=== PATIENT | male | born 1945 | race Caucasian/White ===

== ENCOUNTER 2024-06-15 12:20 | Inpatient (IN) | payer MEDICARE, MEDICAID ==
[~2024-06-15] VITALS: Ht 172.7 cm; Wt 54.5 kg
[2024-06-15 19:56] LABS: BASOPHILS # (AUTO) 0.1 X10'3 (0-0.2); BASOPHILS % (AUTO) 0.6 % (0-1); EOSINOPHILS # (AUTO) 0.1 X10'3 (0-0.9); EOSINOPHILS % (AUTO) 0.5 % (0-6); HEMATOCRIT 29.3 % (42.0-52.0); HEMOGLOBIN 9.7 g/dl (14.0-17.9); LYMPHOCYTES # (AUTO) 2.4 X10'3 (1.1-4.8); LYMPHOCYTES % (AUTO) 16.9 % (21-51); MEAN CORPUSCULAR HEMOGLOBIN 31.1 PG (27.0-31.0); MEAN CORPUSCULAR VOLUME 94.1 FL (78-98); MEAN PLATELET VOLUME 7.1 FL (7.4-10.4); MONOCYTES % (AUTO) 7.3 % (2-12); NEUTROPHILS # (AUTO) 10.6 X10'3 (1.8-7.7); NEUTROPHILS % (AUTO) 74.7 % (42-75); PLATELET COUNT 443 X10'3 (140-440); RED BLOOD COUNT 3.11 X10'6 (4.70-6.10); RED CELL DISTRIBUTION WIDTH 16.5 % (11.5-14.5); WHITE BLOOD COUNT 14.3 X10'3 (4.5-11.0)
[2024-06-15 20:04] LABS: ALANINE AMINOTRANSFERASE 123 U/L (12-78); ALBUMIN 3.1 G/DL (3.4-5.0); ALBUMIN/GLOBULIN RATIO 0.7 (1.1-1.5); ALKALINE PHOSPHATASE 132 IU/L (46-116); ANION GAP 9 (8-16); ASPARTATE AMINO TRANSFERASE 71 U/L (10-37); BILIRUBIN,TOTAL 1.4 MG/DL (0.1-1.0); BLOOD UREA NITROGEN 26 MG/DL (7-18); BUN/CREATININE RATIO 25.2 (10.0-20.0); CALCIUM 9.3 MG/DL (8.5-10.1); CHLORIDE 100 MMOL/L (99-107); CREATININE 1.03 MG/DL (0.60-1.10); GLUCOSE 121 MG/DL (70-104); POTASSIUM 3.7 MMOL/L (3.5-5.1); SODIUM 139 MMOL/L (135-145); TOTAL CARBON DIOXIDE 30.1 MMOL/L (24-32); TOTAL PROTEIN 7.4 G/DL (6.4-8.2); eCRCL 47 ML/MIN; eGFR 70 ML/MIN
[2024-06-15 20:15] LABS: ANISOCYTOSIS 1+; TOTAL CELLS COUNTED 100
[2024-06-15] MEDS: aspirin 325mg tablet PO ONE (20:53)
[2024-06-15 21:06] LABS: BILIRUBIN,URINE NEGATIVE (Neg); CLARITY,URINE CLEAR (Clear); COLOR,URINE YELLOW (Yellow); GLUCOSE, URINE NEGATIVE (Neg); KETONES,URINE NEGATIVE (Neg); LEUKOCYTE ESTERASE ,URINE NEGATIVE (Neg); NITRITES, URINE NEGATIVE (Neg); OCCULT BLOOD,URINE NEGATIVE (Neg); PROTEIN,URINE NEGATIVE (Neg); UROBILINOGEN,URINE 0.2 E.U/dL (0.2-1.0)
[2024-06-15 21:15] LABS: UA COLLECTION TYPE CLN CATCH MIDSTREAM
[2024-06-15] MEDS ORDERED: potassium Cl 40MEQ/1/2NS 520ml 520 ML IV PRN (21:30)
[2024-06-15] MEDS ORDERED: magnesium sulf-water 2g/50mL 50 ML IV PRN (21:30)
[2024-06-15] MEDS ORDERED: acetaminophen 325mg tablet PO PRN (21:30)
[2024-06-15] MEDS ORDERED: potassium Cl 20 mEq SR tablet PO PRN ×2 (21:30)
[2024-06-15] MEDS ORDERED: magnesium sulf-water 4G/100mL 100 ML IV PRN (21:30)
[2024-06-15] MEDS: normal saline 1000ml 1,000 ML IV SCH (21:30)
[2024-06-15] MEDS ORDERED: magnesium hydroxide 30ml (MOM) UD suspension PO PRN (21:30)
[2024-06-15] MEDS ORDERED: magnesium Cl slow-release 64mg tablet PO PRN (21:30)
[2024-06-15] MEDS ORDERED: ondansetron/PF 4mg/2ml inj IV PRN (21:30)
[2024-06-15] MEDS ORDERED: DOXY-1 PO (23:00)
[2024-06-15] MEDS ORDERED: CEFD300C3 PO (23:00)
[2024-06-15] MEDS ORDERED: ASPI-1265 PO (23:04)
[2024-06-15] MEDS ORDERED: ATOR40TA71 PO (23:04)
[2024-06-15] MEDS ORDERED: FLO0.4C PO (23:04)
[2024-06-15] MEDS ORDERED: MIDO5TAB4 PO (23:04)
[2024-06-15] MEDS ORDERED: FURO-150 PO (23:05)
[2024-06-16] MEDS: midodrine 5mg tablet PO SCH
[2024-06-16 03:22] LABS: BASOPHILS # (AUTO) 0.1 X10'3 (0-0.2); BASOPHILS % (AUTO) 0.6 % (0-1); EOSINOPHILS # (AUTO) 0.1 X10'3 (0-0.9); EOSINOPHILS % (AUTO) 0.8 % (0-6); HEMATOCRIT 24.5 % (42.0-52.0); HEMOGLOBIN 8.4 g/dl (14.0-17.9); LYMPHOCYTES # (AUTO) 2.1 X10'3 (1.1-4.8); LYMPHOCYTES % (AUTO) 16.3 % (21-51); MEAN CORPUSCULAR HEMOGLOBIN 31.8 PG (27.0-31.0); MEAN CORPUSCULAR HGB CONC 34.1 g/dL (33.0-36.5); MEAN CORPUSCULAR VOLUME 93.1 FL (78-98); MEAN PLATELET VOLUME 7.2 FL (7.4-10.4); MONOCYTES # (AUTO) 1.1 X10'3 (0-0.9); MONOCYTES % (AUTO) 8.6 % (2-12); NEUTROPHILS # (AUTO) 9.7 X10'3 (1.8-7.7); NEUTROPHILS % (AUTO) 73.7 % (42-75); PLATELET COUNT 390 X10'3 (140-440); RED BLOOD COUNT 2.63 X10'6 (4.70-6.10); RED CELL DISTRIBUTION WIDTH 16.6 % (11.5-14.5); WHITE BLOOD COUNT 13.2 X10'3 (4.5-11.0)
[2024-06-16 03:41] LABS: ALANINE AMINOTRANSFERASE 99 U/L (12-78); ALBUMIN 2.6 G/DL (3.4-5.0); ALBUMIN/GLOBULIN RATIO 0.7 (1.1-1.5); ALKALINE PHOSPHATASE 106 IU/L (46-116); ANION GAP 9 (8-16); ASPARTATE AMINO TRANSFERASE 54 U/L (10-37); BLOOD UREA NITROGEN 30 MG/DL (7-18); BUN/CREATININE RATIO 26.1 (10.0-20.0); CALCIUM 8.9 MG/DL (8.5-10.1); CHLORIDE 103 MMOL/L (99-107); CHOL/HDL RATIO 2.9 (0.00-4.99); CHOLESTEROL 139 MG/DL (0-200); CREATININE 1.15 MG/DL (0.60-1.10); GLUCOSE 120 MG/DL (70-104); HDL CHOLESTEROL 48 MG/DL (35-60); LDL CHOLESTEROL 72 MG/DL (50-100); MAGNESIUM 2.1 MG/DL (1.5-2.4); POTASSIUM 3.7 MMOL/L (3.5-5.1); SODIUM 143 MMOL/L (135-145); TOTAL CARBON DIOXIDE 30.9 MMOL/L (24-32); TOTAL PROTEIN 6.2 G/DL (6.4-8.2); TRIGLYCERIDES 81 MG/DL (20-135); eCRCL 42 ML/MIN; eGFR 62 ML/MIN
[2024-06-16 03:53] LABS: % IRON SATURATION 19 % (11-46); IRON 62 UG/DL (53-167); TOTAL IRON BINDING CAPACITY 322 UG/DL (259-388)
[2024-06-16] MEDS: K and/or MAG REPLACEMENT MC SCH (08:00)
[2024-06-16] MEDS: aspirin 81mg tab.chew PO SCH (10:18)
[2024-06-16] MEDS: cefdinir 300mg capsule PO SCH (10:19)
[2024-06-16] MEDS: tamsulosin 0.4mg capsule PO SCH (10:19)
[2024-06-16] MEDS: multivitamins, therapeutics tablet PO SCH (10:19)
[2024-06-16] MEDS: DOXYCYCLINE 100MG CAPSULE PO SCH (10:19)
[2024-06-16] MEDS: docusate sod 100mg capsule PO SCH (10:19)
[2024-06-16] MEDS: heparin, porcine 5000 units/ml vial SQ SCH (10:27)
[2024-06-16 13:54] LABS: PRO BRAIN NATRIURETIC PEPTIDE 2247 PG/ML (0-450)
[2024-06-16 19:35] VITALS: BP 97/53; PULSE 96; RESP 16; TEMP 98.2; O2SAT 96
[2024-06-16 20:00] VITALS: RESP 16; O2SAT 96
[2024-06-16] MEDS: atorvastatin 20mg tablet PO SCH (20:18)
[2024-06-16 22:00] VITALS: BP 89/53; PULSE 92; RESP 16; TEMP 99; O2SAT 97
[2024-06-17] MEDS: midodrine 5mg tablet PO SCH (00:02)
[2024-06-17 05:09] LABS: BASOPHILS # (AUTO) 0.1 X10'3 (0-0.2); BASOPHILS % (AUTO) 0.6 % (0-1); EOSINOPHILS # (AUTO) 0.1 X10'3 (0-0.9); HEMATOCRIT 24.6 % (42.0-52.0); HEMOGLOBIN 8.2 g/dl (14.0-17.9); LYMPHOCYTES # (AUTO) 2.3 X10'3 (1.1-4.8); LYMPHOCYTES % (AUTO) 17.5 % (21-51); MEAN CORPUSCULAR HEMOGLOBIN 31.6 PG (27.0-31.0); MEAN CORPUSCULAR HGB CONC 33.3 g/dL (33.0-36.5); MEAN CORPUSCULAR VOLUME 94.9 FL (78-98); MEAN PLATELET VOLUME 6.9 FL (7.4-10.4); MONOCYTES # (AUTO) 1.2 X10'3 (0-0.9); MONOCYTES % (AUTO) 8.6 % (2-12); NEUTROPHILS # (AUTO) 9.7 X10'3 (1.8-7.7); NEUTROPHILS % (AUTO) 72.3 % (42-75); PLATELET COUNT 461 X10'3 (140-440); RED CELL DISTRIBUTION WIDTH 17.4 % (11.5-14.5); WHITE BLOOD COUNT 13.4 X10'3 (4.5-11.0)
[2024-06-17 05:21] LABS: TOTAL CELLS COUNTED 100
[2024-06-17 05:22] LABS: ALANINE AMINOTRANSFERASE 72 U/L (12-78); ALBUMIN 2.4 G/DL (3.4-5.0); ALBUMIN/GLOBULIN RATIO 0.7 (1.1-1.5); ALKALINE PHOSPHATASE 94 IU/L (46-116); ANION GAP 9 (8-16); ASPARTATE AMINO TRANSFERASE 35 U/L (10-37); BILIRUBIN,TOTAL 0.9 MG/DL (0.1-1.0); BLOOD UREA NITROGEN 32 MG/DL (7-18); CALCIUM 8.7 MG/DL (8.5-10.1); CHLORIDE 105 MMOL/L (99-107); GLUCOSE 109 MG/DL (70-104); MAGNESIUM 1.9 MG/DL (1.5-2.4); POTASSIUM 4.2 MMOL/L (3.5-5.1); SODIUM 140 MMOL/L (135-145); TOTAL CARBON DIOXIDE 26.3 MMOL/L (24-32); TOTAL PROTEIN 5.9 G/DL (6.4-8.2); eCRCL 48 ML/MIN; eGFR 73 ML/MIN
[2024-06-17 06:00] VITALS: BP 94/56; PULSE 71; RESP 20; TEMP 98.5; O2SAT 96
[2024-06-17 08:00] VITALS: RESP 16; O2SAT 98
[2024-06-17 10:00] VITALS: BP 95/54; PULSE 80; RESP 16; TEMP 97.7; O2SAT 98
[2024-06-17 16:01] LABS: THYROID STIMULATING HORMONE 2.73 ulU/ml (0.34-4.50)
[2024-06-17 18:00] VITALS: BP 101/53; PULSE 87; RESP 16; TEMP 97.1; O2SAT 98
[2024-06-17] MEDS: lactose-reduced food (Ensure Enlive) - 237ml bottle PO SCH (18:00)
[2024-06-17 20:00] VITALS: RESP 16; O2SAT 98
[2024-06-17 22:00] VITALS: BP 90/50; PULSE 81; RESP 18; TEMP 98.3; O2SAT 96
[2024-06-18 05:12] LABS: HBSAG SCREEN Negative (Negative); HEP B CORE AB, TOT Negative (Negative); HEP B SURF AB Non Reactive (.); HEPATITIS C VIRUS ANTIBODY Non Reactive (Non Reactive)
[2024-06-18 06:00] VITALS: BP 95/53; PULSE 74; RESP 18; TEMP 98.9; O2SAT 96
[2024-06-18 06:24] LABS: BASOPHILS # (AUTO) 0.1 X10'3 (0-0.2); BASOPHILS % (AUTO) 0.7 % (0-1); EOSINOPHILS # (AUTO) 0.1 X10'3 (0-0.9); EOSINOPHILS % (AUTO) 1.1 % (0-6); HEMOGLOBIN 8.1 g/dl (14.0-17.9); LYMPHOCYTES # (AUTO) 2.6 X10'3 (1.1-4.8); LYMPHOCYTES % (AUTO) 20.9 % (21-51); MEAN CORPUSCULAR HEMOGLOBIN 32.2 PG (27.0-31.0); MEAN CORPUSCULAR HGB CONC 33.7 g/dL (33.0-36.5); MEAN CORPUSCULAR VOLUME 95.4 FL (78-98); MEAN PLATELET VOLUME 7.3 FL (7.4-10.4); MONOCYTES % (AUTO) 8.4 % (2-12); NEUTROPHILS # (AUTO) 8.4 X10'3 (1.8-7.7); NEUTROPHILS % (AUTO) 68.9 % (42-75); PLATELET COUNT 526 X10'3 (140-440); RED BLOOD COUNT 2.52 X10'6 (4.70-6.10); RED CELL DISTRIBUTION WIDTH 18.5 % (11.5-14.5); WHITE BLOOD COUNT 12.2 X10'3 (4.5-11.0)
[2024-06-18 06:59] LABS: ALANINE AMINOTRANSFERASE 69 U/L (12-78); ALBUMIN 2.3 G/DL (3.4-5.0); ALBUMIN/GLOBULIN RATIO 0.7 (1.1-1.5); ALKALINE PHOSPHATASE 93 IU/L (46-116); ANION GAP 9 (8-16); ASPARTATE AMINO TRANSFERASE 39 U/L (10-37); BILIRUBIN,TOTAL 0.9 MG/DL (0.1-1.0); BLOOD UREA NITROGEN 33 MG/DL (7-18); CALCIUM 8.4 MG/DL (8.5-10.1); CHLORIDE 106 MMOL/L (99-107); CREATININE 1.18 MG/DL (0.60-1.10); GLUCOSE 100 MG/DL (70-104); MAGNESIUM 1.7 MG/DL (1.5-2.4); POTASSIUM 4.2 MMOL/L (3.5-5.1); SODIUM 140 MMOL/L (135-145); TOTAL CARBON DIOXIDE 25.4 MMOL/L (24-32); TOTAL PROTEIN 5.6 G/DL (6.4-8.2); eCRCL 41 ML/MIN; eGFR 60 ML/MIN
[2024-06-18 08:45] LABS: ANISOCYTOSIS 2+; NUCLEATED RED BLOOD CELLS 2 /100WBC (0-0); PLATELET ESTIMATE INCREASED; POLYCHROMASIA 2+; TARGET CELLS FEW; TOTAL CELLS COUNTED 100
[2024-06-18 09:00] VITALS: RESP 18; O2SAT 96
[2024-06-18 10:30] VITALS: BP 92/49; PULSE 90; RESP 14; TEMP 98.3; O2SAT 97
[2024-06-18 12:52] LABS: OCCULT BLOOD STOOL NEGATIVE (Neg)
[2024-06-18 18:00] VITALS: BP 96/50; PULSE 80; RESP 20; TEMP 98.9; O2SAT 97
[2024-06-18 20:00] VITALS: RESP 20; O2SAT 97
[2024-06-18 22:00] VITALS: BP 98/52; PULSE 89; RESP 18; TEMP 98.4; O2SAT 95
[2024-06-19 06:00] VITALS: BP 96/55; PULSE 72; RESP 18; TEMP 98.3; O2SAT 97
[2024-06-19 06:20] LABS: BASOPHILS # (AUTO) 0.1 X10'3 (0-0.2); EOSINOPHILS # (AUTO) 0.1 X10'3 (0-0.9); EOSINOPHILS % (AUTO) 1.2 % (0-6); HEMOGLOBIN 8.7 g/dl (14.0-17.9); LYMPHOCYTES # (AUTO) 2.5 X10'3 (1.1-4.8); NEUTROPHILS # (AUTO) 7.8 X10'3 (1.8-7.7); WHITE BLOOD COUNT 11.7 X10'3 (4.5-11.0)
[2024-06-19 06:23] LABS: BASOPHILS % (AUTO) 0.9 % (0-1); HEMATOCRIT 26.8 % (42.0-52.0); LYMPHOCYTES % (AUTO) 21.6 % (21-51); MEAN CORPUSCULAR HEMOGLOBIN 31.3 PG (27.0-31.0); MEAN CORPUSCULAR HGB CONC 32.6 g/dL (33.0-36.5); MEAN CORPUSCULAR VOLUME 96.2 FL (78-98); MONOCYTES # (AUTO) 1.2 X10'3 (0-0.9); MONOCYTES % (AUTO) 10.3 % (2-12); PLATELET COUNT 603 X10'3 (140-440); RED BLOOD COUNT 2.79 X10'6 (4.70-6.10); RED CELL DISTRIBUTION WIDTH 19.4 % (11.5-14.5)
[2024-06-19 06:48] LABS: ALANINE AMINOTRANSFERASE 65 U/L (12-78); ALBUMIN 2.5 G/DL (3.4-5.0); ALBUMIN/GLOBULIN RATIO 0.7 (1.1-1.5); ALKALINE PHOSPHATASE 84 IU/L (46-116); ANION GAP 6 (8-16); ASPARTATE AMINO TRANSFERASE 39 U/L (10-37); BILIRUBIN,TOTAL 0.9 MG/DL (0.1-1.0); BLOOD UREA NITROGEN 34 MG/DL (7-18); BUN/CREATININE RATIO 33.7 (10.0-20.0); CALCIUM 8.5 MG/DL (8.5-10.1); CHLORIDE 108 MMOL/L (99-107); CREATININE 1.01 MG/DL (0.60-1.10); GLUCOSE 105 MG/DL (70-104); MAGNESIUM 1.8 MG/DL (1.5-2.4); SODIUM 141 MMOL/L (135-145); TOTAL CARBON DIOXIDE 26.7 MMOL/L (24-32); TOTAL PROTEIN 5.9 G/DL (6.4-8.2); eCRCL 48 ML/MIN; eGFR 72 ML/MIN
[2024-06-19 07:55] LABS: ANISOCYTOSIS 2+; PLATELET ESTIMATE INCREASED; TOTAL CELLS COUNTED 100
[2024-06-19 07:56] LABS: POLYCHROMASIA 1+; TARGET CELLS FEW
[2024-06-19 10:00] VITALS: BP 95/44; PULSE 72; RESP 16; TEMP 97.2; O2SAT 95
[2024-06-19 18:00] VITALS: BP 98/56; PULSE 78; RESP 18; TEMP 97.6; O2SAT 96
[2024-06-19 20:00] VITALS: RESP 18; O2SAT 96
[2024-06-19 22:00] VITALS: BP 103/57; PULSE 69; RESP 14; TEMP 98.2; O2SAT 96
[2024-06-20] VITALS (9 sets, daily range): BP systolic 94–111; BP diastolic 45–62; PULSE 77–88; RESP 12–16; TEMP 96.6–98.6; O2SAT 94–97
[2024-06-20 04:04] LABS: BASOPHILS # (AUTO) 0.1 X10'3 (0-0.2)
[2024-06-20 04:05] LABS: BASOPHILS % (AUTO) 1.1 % (0-1); EOSINOPHILS # (AUTO) 0.2 X10'3 (0-0.9); EOSINOPHILS % (AUTO) 1.4 % (0-6); HEMATOCRIT 26.6 % (42.0-52.0); HEMOGLOBIN 8.9 g/dl (14.0-17.9); LYMPHOCYTES # (AUTO) 2.5 X10'3 (1.1-4.8); LYMPHOCYTES % (AUTO) 21.2 % (21-51); MEAN CORPUSCULAR HEMOGLOBIN 32.6 PG (27.0-31.0); MEAN CORPUSCULAR HGB CONC 33.6 g/dL (33.0-36.5); MONOCYTES # (AUTO) 1.4 X10'3 (0-0.9); MONOCYTES % (AUTO) 11.8 % (2-12); NEUTROPHILS # (AUTO) 7.7 X10'3 (1.8-7.7); NEUTROPHILS % (AUTO) 64.5 % (42-75); PLATELET COUNT 627 X10'3 (140-440); RED BLOOD COUNT 2.74 X10'6 (4.70-6.10); RED CELL DISTRIBUTION WIDTH 19.4 % (11.5-14.5)
[2024-06-20 04:23] LABS: ALANINE AMINOTRANSFERASE 73 U/L (12-78); ALBUMIN 2.5 G/DL (3.4-5.0); ALBUMIN/GLOBULIN RATIO 0.7 (1.1-1.5); ALKALINE PHOSPHATASE 99 IU/L (46-116); ANION GAP 6 (8-16); ASPARTATE AMINO TRANSFERASE 49 U/L (10-37); BILIRUBIN,TOTAL 0.9 MG/DL (0.1-1.0); BLOOD UREA NITROGEN 39 MG/DL (7-18); BUN/CREATININE RATIO 36.8 (10.0-20.0); CALCIUM 8.5 MG/DL (8.5-10.1); CHLORIDE 106 MMOL/L (99-107); CREATININE 1.06 MG/DL (0.60-1.10); GLUCOSE 111 MG/DL (70-104); POTASSIUM 4.2 MMOL/L (3.5-5.1); SODIUM 139 MMOL/L (135-145); TOTAL CARBON DIOXIDE 26.9 MMOL/L (24-32); TOTAL PROTEIN 6.1 G/DL (6.4-8.2); eCRCL 46 ML/MIN; eGFR 68 ML/MIN
[2024-06-20 04:28] LABS: BASOPHILS % (MANUAL) 1 % (0-1); EOSINOPHILS % (MANUAL) 1 % (0-6); LYMPHOCYTES % (MANUAL) 34 % (21-51); MONOCYTES % (MANUAL) 14 % (2-12); NEUTROPHILS % (MANUAL) 50 % (42-75); PLATELET ESTIMATE INCREASED; POLYCHROMASIA 1+; TOTAL CELLS COUNTED 100
[2024-06-21 06:54] VITALS: BP 98/53; PULSE 70; RESP 18; TEMP 98.3; O2SAT 97
[2024-06-21 08:00] VITALS: RESP 16
[2024-06-21 09:55] LABS: BLOOD UREA NITROGEN 34 MG/DL (7-18); BUN/CREATININE RATIO 32.7 (10.0-20.0); CHLORIDE 105 MMOL/L (99-107); CREATININE 1.04 MG/DL (0.60-1.10); GLUCOSE 134 MG/DL (70-104); POTASSIUM 3.8 MMOL/L (3.5-5.1); SODIUM 139 MMOL/L (135-145); eCRCL 47 ML/MIN; eGFR 69 ML/MIN
[2024-06-21 10:00] VITALS: BP 98/49; PULSE 91; RESP 16; TEMP 97.6; O2SAT 98
[2024-06-21 10:16] LABS: ALANINE AMINOTRANSFERASE 76 U/L (12-78); ALBUMIN 2.7 G/DL (3.4-5.0); ALBUMIN/GLOBULIN RATIO 0.8 (1.1-1.5); ALKALINE PHOSPHATASE 103 IU/L (46-116); ANION GAP 7 (8-16); ASPARTATE AMINO TRANSFERASE 45 U/L (10-37); BILIRUBIN,TOTAL 0.9 MG/DL (0.1-1.0); CALCIUM 8.6 MG/DL (8.5-10.1); TOTAL CARBON DIOXIDE 27.5 MMOL/L (24-32); TOTAL PROTEIN 6.3 G/DL (6.4-8.2)
[2024-06-21 18:00] VITALS: BP 100/53; PULSE 77; RESP 16; TEMP 97.5; O2SAT 98
[2024-06-21 22:00] VITALS: BP 102/61; PULSE 83; RESP 12; TEMP 97.8; O2SAT 96
[2024-06-22 05:28] LABS: BASOPHILS # (AUTO) 0.1 X10'3 (0-0.2); EOSINOPHILS # (AUTO) 0.1 X10'3 (0-0.9); EOSINOPHILS % (AUTO) 1.4 % (0-6); HEMATOCRIT 28.4 % (42.0-52.0); HEMOGLOBIN 9.6 g/dl (14.0-17.9); LYMPHOCYTES # (AUTO) 2.8 X10'3 (1.1-4.8); LYMPHOCYTES % (AUTO) 27.6 % (21-51); MEAN CORPUSCULAR HEMOGLOBIN 33.4 PG (27.0-31.0); MEAN CORPUSCULAR HGB CONC 33.9 g/dL (33.0-36.5); MEAN CORPUSCULAR VOLUME 98.4 FL (78-98); MONOCYTES # (AUTO) 1.3 X10'3 (0-0.9); MONOCYTES % (AUTO) 12.4 % (2-12); NEUTROPHILS # (AUTO) 5.9 X10'3 (1.8-7.7); NEUTROPHILS % (AUTO) 57.6 % (42-75); PLATELET COUNT 626 X10'3 (140-440); RED BLOOD COUNT 2.89 X10'6 (4.70-6.10); RED CELL DISTRIBUTION WIDTH 20.3 % (11.5-14.5); WHITE BLOOD COUNT 10.2 X10'3 (4.5-11.0)
[2024-06-22 05:44] LABS: NUCLEATED RED BLOOD CELLS 1 /100WBC (0-0); TOTAL CELLS COUNTED 100
[2024-06-22 05:46] LABS: ALANINE AMINOTRANSFERASE 68 U/L (12-78); ALBUMIN 2.7 G/DL (3.4-5.0); ALBUMIN/GLOBULIN RATIO 0.8 (1.1-1.5); ALKALINE PHOSPHATASE 103 IU/L (46-116); ANION GAP 8 (8-16); ASPARTATE AMINO TRANSFERASE 40 U/L (10-37); BILIRUBIN,TOTAL 0.9 MG/DL (0.1-1.0); BLOOD UREA NITROGEN 32 MG/DL (7-18); BUN/CREATININE RATIO 34.4 (10.0-20.0); CALCIUM 8.9 MG/DL (8.5-10.1); CHLORIDE 106 MMOL/L (99-107); CREATININE 0.93 MG/DL (0.60-1.10); GLUCOSE 99 MG/DL (70-104); POTASSIUM 4.3 MMOL/L (3.5-5.1); SODIUM 138 MMOL/L (135-145); TOTAL CARBON DIOXIDE 24.2 MMOL/L (24-32); TOTAL PROTEIN 6.2 G/DL (6.4-8.2); eCRCL 52 ML/MIN; eGFR 79 ML/MIN
[2024-06-22 06:00] VITALS: BP 106/50; PULSE 70; RESP 12; TEMP 97.5; O2SAT 96
[2024-06-22 08:10] VITALS: RESP 16
[2024-06-22 10:00] VITALS: BP 92/54; PULSE 87; RESP 16; TEMP 98; O2SAT 95
[2024-06-22 18:00] VITALS: BP 120/67; PULSE 76; RESP 16; TEMP 98.2; O2SAT 97
[2024-06-22 20:40] VITALS: RESP 16
[2024-06-22 22:00] VITALS: RESP 16
[2024-06-23 04:17] LABS: BASOPHILS # (AUTO) 0.1 X10'3 (0-0.2); BASOPHILS % (AUTO) 1.2 % (0-1); EOSINOPHILS # (AUTO) 0.2 X10'3 (0-0.9); EOSINOPHILS % (AUTO) 1.7 % (0-6); HEMATOCRIT 29.2 % (42.0-52.0); HEMOGLOBIN 9.9 g/dl (14.0-17.9); LYMPHOCYTES # (AUTO) 2.7 X10'3 (1.1-4.8); LYMPHOCYTES % (AUTO) 30.2 % (21-51); MEAN CORPUSCULAR HEMOGLOBIN 33.6 PG (27.0-31.0); MEAN CORPUSCULAR HGB CONC 33.9 g/dL (33.0-36.5); MEAN CORPUSCULAR VOLUME 99.2 FL (78-98); MEAN PLATELET VOLUME 6.7 FL (7.4-10.4); MONOCYTES # (AUTO) 1.1 X10'3 (0-0.9); MONOCYTES % (AUTO) 12.4 % (2-12); NEUTROPHILS # (AUTO) 4.9 X10'3 (1.8-7.7); NEUTROPHILS % (AUTO) 54.5 % (42-75); PLATELET COUNT 567 X10'3 (140-440); RED BLOOD COUNT 2.95 X10'6 (4.70-6.10); RED CELL DISTRIBUTION WIDTH 20.8 % (11.5-14.5); WHITE BLOOD COUNT 8.9 X10'3 (4.5-11.0)
[2024-06-23 04:39] LABS: TOTAL CELLS COUNTED 100
[2024-06-23 04:42] LABS: ALANINE AMINOTRANSFERASE 66 U/L (12-78); ALBUMIN 2.7 G/DL (3.4-5.0); ALBUMIN/GLOBULIN RATIO 0.8 (1.1-1.5); ALKALINE PHOSPHATASE 102 IU/L (46-116); ANION GAP 11 (8-16); ASPARTATE AMINO TRANSFERASE 36 U/L (10-37); BILIRUBIN,TOTAL 0.9 MG/DL (0.1-1.0); BLOOD UREA NITROGEN 37 MG/DL (7-18); BUN/CREATININE RATIO 41.1 (10.0-20.0); CALCIUM 8.6 MG/DL (8.5-10.1); CHLORIDE 105 MMOL/L (99-107); GLUCOSE 106 MG/DL (70-104); POTASSIUM 4.5 MMOL/L (3.5-5.1); SODIUM 140 MMOL/L (135-145); TOTAL CARBON DIOXIDE 24.3 MMOL/L (24-32); TOTAL PROTEIN 6.2 G/DL (6.4-8.2); eCRCL 54 ML/MIN; eGFR 82 ML/MIN
[2024-06-23 06:00] VITALS: BP 96/53; PULSE 112; RESP 14; TEMP 98; O2SAT 97
[2024-06-23 10:00] VITALS: BP 105/59; PULSE 79; RESP 18; TEMP 97.6; O2SAT 98
[2024-06-23 13:16] VITALS: BP 90/48; PULSE 84; O2SAT 96
[2024-06-23 18:00] VITALS: BP 106/65; PULSE 89; RESP 18; TEMP 98.6; O2SAT 96
[2024-06-23 20:00] VITALS: RESP 18; O2SAT 96
[2024-06-23 22:00] VITALS: BP 107/63; PULSE 89; RESP 22; TEMP 98.6; O2SAT 95
[2024-06-24 04:54] LABS: BASOPHILS # (AUTO) 0.1 X10'3 (0-0.2); BASOPHILS % (AUTO) 1.2 % (0-1); EOSINOPHILS # (AUTO) 0.1 X10'3 (0-0.9); EOSINOPHILS % (AUTO) 1.2 % (0-6); HEMATOCRIT 28.5 % (42.0-52.0); HEMOGLOBIN 9.7 g/dl (14.0-17.9); LYMPHOCYTES # (AUTO) 2.6 X10'3 (1.1-4.8); LYMPHOCYTES % (AUTO) 28.3 % (21-51); MEAN CORPUSCULAR HEMOGLOBIN 33.7 PG (27.0-31.0); MEAN CORPUSCULAR HGB CONC 33.9 g/dL (33.0-36.5); MEAN CORPUSCULAR VOLUME 99.5 FL (78-98); MEAN PLATELET VOLUME 6.9 FL (7.4-10.4); MONOCYTES # (AUTO) 1.3 X10'3 (0-0.9); MONOCYTES % (AUTO) 13.9 % (2-12); NEUTROPHILS # (AUTO) 5.1 X10'3 (1.8-7.7); NEUTROPHILS % (AUTO) 55.4 % (42-75); PLATELET COUNT 541 X10'3 (140-440); RED BLOOD COUNT 2.86 X10'6 (4.70-6.10); RED CELL DISTRIBUTION WIDTH 20.6 % (11.5-14.5); WHITE BLOOD COUNT 9.2 X10'3 (4.5-11.0)
[2024-06-24 05:10] LABS: TOTAL CELLS COUNTED 100
[2024-06-24 05:11] LABS: ANISOCYTOSIS 2+; PLATELET ESTIMATE INCREASED
[2024-06-24 05:15] LABS: ALANINE AMINOTRANSFERASE 70 U/L (12-78); ALBUMIN 2.7 G/DL (3.4-5.0); ALBUMIN/GLOBULIN RATIO 0.8 (1.1-1.5); ALKALINE PHOSPHATASE 102 IU/L (46-116); ANION GAP 9 (8-16); ASPARTATE AMINO TRANSFERASE 35 U/L (10-37); BILIRUBIN,TOTAL 0.7 MG/DL (0.1-1.0); BLOOD UREA NITROGEN 38 MG/DL (7-18); CALCIUM 8.7 MG/DL (8.5-10.1); CHLORIDE 106 MMOL/L (99-107); CREATININE 0.95 MG/DL (0.60-1.10); GLUCOSE 99 MG/DL (70-104); POTASSIUM 4.4 MMOL/L (3.5-5.1); SODIUM 141 MMOL/L (135-145); TOTAL CARBON DIOXIDE 25.8 MMOL/L (24-32); TOTAL PROTEIN 6.2 G/DL (6.4-8.2); eCRCL 51 ML/MIN; eGFR 77 ML/MIN
[2024-06-24 06:00] VITALS: BP 91/47; PULSE 78; RESP 20; TEMP 98.9; O2SAT 95
[2024-06-24 10:00] VITALS: BP 102/61; PULSE 89; RESP 14; TEMP 98.7; O2SAT 95
[2024-06-24 18:00] VITALS: BP 111/62; PULSE 94; RESP 14; TEMP 98.2; O2SAT 98
[2024-06-24 20:00] VITALS: RESP 16
[2024-06-24 22:00] VITALS: BP 96/46; PULSE 83; RESP 24; TEMP 97.8; O2SAT 95
[2024-06-25 06:25] LABS: BASOPHILS # (AUTO) 0.1 X10'3 (0-0.2); BASOPHILS % (AUTO) 0.8 % (0-1); EOSINOPHILS # (AUTO) 0.1 X10'3 (0-0.9); EOSINOPHILS % (AUTO) 1.4 % (0-6); HEMATOCRIT 30.9 % (42.0-52.0); HEMOGLOBIN 10.3 g/dl (14.0-17.9); LYMPHOCYTES # (AUTO) 2.6 X10'3 (1.1-4.8); MEAN CORPUSCULAR HEMOGLOBIN 33.2 PG (27.0-31.0); MEAN CORPUSCULAR HGB CONC 33.5 g/dL (33.0-36.5); MEAN CORPUSCULAR VOLUME 99.1 FL (78-98); MEAN PLATELET VOLUME 7.3 FL (7.4-10.4); MONOCYTES # (AUTO) 1.3 X10'3 (0-0.9); MONOCYTES % (AUTO) 14.5 % (2-12); NEUTROPHILS # (AUTO) 5.1 X10'3 (1.8-7.7); NEUTROPHILS % (AUTO) 55.3 % (42-75); PLATELET COUNT 576 X10'3 (140-440); RED BLOOD COUNT 3.12 X10'6 (4.70-6.10); RED CELL DISTRIBUTION WIDTH 20.8 % (11.5-14.5); WHITE BLOOD COUNT 9.2 X10'3 (4.5-11.0)
[2024-06-25 06:42] LABS: ALANINE AMINOTRANSFERASE 61 U/L (12-78); ALBUMIN 2.8 G/DL (3.4-5.0); ALBUMIN/GLOBULIN RATIO 0.8 (1.1-1.5); ALKALINE PHOSPHATASE 95 IU/L (46-116); ANION GAP 5 (8-16); ASPARTATE AMINO TRANSFERASE 34 U/L (10-37); BILIRUBIN,TOTAL 0.8 MG/DL (0.1-1.0); BLOOD UREA NITROGEN 42 MG/DL (7-18); BUN/CREATININE RATIO 37.5 (10.0-20.0); CALCIUM 8.5 MG/DL (8.5-10.1); CHLORIDE 106 MMOL/L (99-107); CREATININE 1.12 MG/DL (0.60-1.10); GLUCOSE 97 MG/DL (70-104); POTASSIUM 4.8 MMOL/L (3.5-5.1); SODIUM 139 MMOL/L (135-145); TOTAL CARBON DIOXIDE 27.7 MMOL/L (24-32); TOTAL PROTEIN 6.2 G/DL (6.4-8.2); eCRCL 43 ML/MIN; eGFR 64 ML/MIN
[2024-06-25 07:08] LABS: PLATELET ESTIMATE INCREASED; TOTAL CELLS COUNTED 100
[2024-06-25 07:09] LABS: ANISOCYTOSIS 3+
[2024-06-25 07:38] VITALS: RESP 20; O2SAT 97
== END 2024-06-25 10:46 | DRG 280 ==
LOC: ER 12:22 → ED HOLD 21:33 → UNDOADMIN 06-16 05:08 → SUR 3N 06-16 19:30
PROVIDERS: ADMIT Internal Medicine Critical Care Medicine; ATTEND Internal Medicine Critical Care Medicine
DX: I11.0 Hypertensive heart disease with heart failure (principal); E43 Unspecified severe protein-calorie malnutrition; I21.4 Non-ST elevation (NSTEMI) myocardial infarction; I50.21 Acute systolic (congestive) heart failure; Z68.1 Body mass index [BMI] 19.9 or less, adult; R65.10 Systemic inflammatory response syndrome (SIRS) of non-infectious origin without acute organ dysfunction; E86.0 Dehydration; R62.7 Adult failure to thrive; R74.01 Elevation of levels of liver transaminase levels; D63.8 Anemia in other chronic diseases classified elsewhere; I95.1 Orthostatic hypotension; D50.8 Other iron deficiency anemias; F03.90 Unspecified dementia, unspecified severity, without behavioral disturbance, psychotic disturbance, mood disturbance, and anxiety; Z79.899 Other long term (current) drug therapy; Z79.82 Long term (current) use of aspirin; Z87.891 Personal history of nicotine dependence
CPT/HCPCS: 36415; 70450; 71045; 80053; 80061; 81003; 82272; 82607; 83036; 83540; 83550; 83605; 83735; 83880; 84145; 84443; 84484; 85007; 85025; 86704; 86706; 86803; 87040; 87081; 87340; 87522; 93005; 97110; 97116; 97162; 97530; 99285; G0378; J1644